=== PATIENT | male | born 1995 | race African-American/Black ===

== ENCOUNTER 2020-06-13 17:09 | Emergency (ER) | payer MEDICAID ==
[~2020-06-13] VITALS: Ht 165.1 cm; Wt 63.5 kg
[2020-06-13 17:55] VITALS: BP 115/58
--- NOTE | 2020-06-13 17:59 | NUR ---
GLENNY6. HANDED ON URINE CUP.
--- NOTE | 2020-06-13 18:54 | NUR ---
25YO M BIB SELF C/O BLOODY STOOLS SINCE 1AM. PT ALSO EXPERIENCING NAUSEA AND LOWER ABDOMINAL PAIN AFTER BOWEL MOVEMENT. DENIES DYSURIA, HEMATURIA. IN ED, VSS. ABDOMEN FLAT NONTENDER. PT RESTING IN BED COMFORTABLY. ERMD MADE AWARE. PMH: BRONCHITIS MEDS: ALBUTEROL NKA
--- NOTE | 2020-06-13 19:18 | NUR ---
REPORT RECEIVED FROM STEVE CHAMBERLAIN
--- NOTE | 2020-06-13 19:35 | NUR ---
SPOKE WITH PT, HE STATES HE HAD ANOTHER BOWEL MOVEMENT WHILE HERE AND IT WAS ALL BLOOD. HAVING LOWER ABD PAIN 10/10 AT THIS TIME. GAVE PT A BLANKET AND HELPED POSITION FOR COMFORT
[2020-06-13] MEDS ORDERED: KETOROLAC 30 MG/ML VIAL IVP ONE (19:50)
[2020-06-13] MEDS ORDERED: DICYCLOMINE 10 MG CAP PO ONE (19:50)
[2020-06-13 20:11] LABS: BASOPHILS % (AUTO) 0.6 % (0.0-2.0); EOSINOPHILS % (AUTO) 0.2 % (0.0-4.0); HEMATOCRIT 43.5 % (36-52); HEMOGLOBIN 14.9 g/dL (12.0-18.0); LYMPHOCYTES # (AUTO) 1.1 K/uL (2.0-11.5); LYMPHOCYTES % (AUTO) 23.2 % (20.5-51.1); MEAN CORPUSCULAR HEMOGLOBIN 29 pg (27-31); MEAN CORPUSCULAR HGB CONC 34 g/dL (33-37); MEAN CORPUSCULAR VOLUME 83.9 fL (80-94); MONOCYTES # (AUTO) 0.6 K/uL (0.8-1.0); MONOCYTES % (AUTO) 11.3 % (1.7-9.3); NEUTROPHILS # (AUTO) 3.2 K/uL (1.8-7.7); NEUTROPHILS % (AUTO) 64.7 % (42.2-75.2); PLATELET COUNT (AUTO) 156 K/uL (140-450); RED BLOOD CELL COUNT(AUTO) 5.18 MIL/uL (4.20-6.10); RED CELL DISTRIBUTION WIDTH 12.9 % (11.6-13.7); WHITE BLOOD COUNT (AUTO) 4.9 K/uL (4.8-10.8)
--- NOTE | 2020-06-13 20:21 | NUR ---
UNABLE TO LOCATE UA GIVEN EARLIER, PT PROVIDED WITH ANOTHER UA CUP AND TOLD WE BRIAN MORE URINE.
[2020-06-13 20:36] LABS: CARBON DIOXIDE 28.5 mmol/L (21-32); CREATININE 1.2 mg/dL (0.6-1.3); POTASSIUM 3.5 mmol/L (3.5-5.1); TOTAL BILIRUBIN 0.4 mg/dL (0.0-1.0)
[2020-06-13] MEDS ORDERED: ALUMINUM HYD/MAG/SIMETHICONE 30 ML UDC PO ONE (21:05)
--- NOTE | 2020-06-13 21:05 | NUR ---
CONSRNT SIGNED FOR CT WITH IV CONTRAST
[2020-06-13] MEDS ORDERED: ALUMINUM HYD/MAG/SIMETHICONE 30 ML UDC ONE (21:18)
--- NOTE | 2020-06-13 21:27 | NUR ---
PT STATES PAIN HAS COME BACK, MD NOTIFIED NEW ORDER RECEIVED AND CARRIED OUT
--- NOTE | 2020-06-13 21:53 | NUR ---
PT JUST RETURNED FROM CT
--- NOTE | 2020-06-13 22:36 | NUR ---
PT SLEEPING, RESPIRATIONS EVEN REGULAR AND UNLABORED.
--- NOTE | 2020-06-13 23:24 | NUR ---
ASSISTED MD GAUTAM AT BEDSIDE FOR RECTAL EXAM OF PATIENT. PT ASLO ASKED TO PROVIDE A STOOL SPECIMEN AND UA
[2020-06-14 00:11] VITALS: BP 121/75
--- NOTE | 2020-06-14 00:12 | NUR ---
Patient discharged with v/s stable. Written and verbal after care instructions given and explained. Patient alert, oriented and verbalized understanding of instructions. Ambulatory with steady gait. All questions addressed prior to discharge. ID band removed. Patient advised to follow up with PMD. Rx of NORCO AND BENTYL given. Patient educated on indication of medication including possible reaction and side effects. Opportunity to ask questions provided and answered.
== END 2020-06-14 00:11 | disposition home or self-care (01) ==
LOC: MED 17:09
DX: R10.30 Lower abdominal pain, unspecified (principal); R19.7 Diarrhea, unspecified
CPT/HCPCS: 36415; 74177; 80053; 81002; 85025; 86140; 87070; 96374; 99285; J1885; Q9967

== ENCOUNTER 2020-07-13 10:29 | Emergency (ER) | payer MEDICAID ==
[~2020-07-13] VITALS: Ht 165.1 cm; Wt 63.0 kg
[2020-07-13 10:34] VITALS: BP 142/73
[2020-07-13] MEDS ORDERED: FLUORESCEIN OPTH STRIP 1 MG OP ONE (10:40)
--- NOTE | 2020-07-13 10:40 | NUR ---
Pt taken to ER bed 12.
--- NOTE | 2020-07-13 10:42 | NUR ---
25 y/o male c/o right eye pain 02/20 describes as throbbing with palpation worse. 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 Denies PMH NKA
[2020-07-13 11:41] VITALS: BP 142/73
--- NOTE | 2020-07-13 11:41 | NUR ---
Patient discharged with v/s stable. Written and verbal after care instructions given and explained. Patient alert, oriented and verbalized understanding of instructions. Ambulatory with steady gait. All questions addressed prior to discharge. ID band removed. Patient advised to follow up with PMD. Rx of prednisone 20mg PO for 5 days given. Patient educated on indication of medication including possible reaction and side effects. Opportunity to ask questions provided and answered.
== END 2020-07-13 11:41 | disposition home or self-care (01) ==
LOC: MED 10:29
DX: H00.022 Hordeolum internum right lower eyelid (principal)
CPT/HCPCS: 99283

== ENCOUNTER 2020-07-16 10:27 | Emergency (ER) | payer MEDICAID ==
[~2020-07-16] VITALS: Ht 165.1 cm; Wt 64.4 kg
[2020-07-16 10:31] VITALS: BP 128/91
--- NOTE | 2020-07-16 10:31 | NUR ---
PT LEFT IN TRIAGE FOR MSE.
--- NOTE | 2020-07-16 10:36 | NUR ---
25/M PRESENTS TO ED C/O LEFT EYE PAIN/SWELLING X2 DAYS. PT STATES HE WAS SEEN ON FRIDAY FOR STY TO RIGHT EYE. PT STATES THAT HAS SINCE RESOLVED AND PT NOW C/O PAIN TO LEFT EYE.
[2020-07-16 11:55] VITALS: BP 128/91
--- NOTE | 2020-07-16 11:55 | NUR ---
Patient discharged with v/s stable. Written and verbal after care instructions given and explained. Patient alert, oriented and verbalized understanding of instructions. Ambulatory with steady gait. All questions addressed prior to discharge. ID band removed. Patient advised to follow up with PMD. Rx of eye ointment 1/2 inch ribbon to affected eye 3-4times a day for 5days given. Patient educated on indication of medication including possible reaction and side effects. Opportunity to ask questions provided and answered.
== END 2020-07-16 11:55 | disposition home or self-care (01) ==
LOC: MED 10:27
DX: H00.015 Hordeolum externum left lower eyelid (principal)
CPT/HCPCS: 99283

== ENCOUNTER 2020-08-20 07:11 | Emergency (ER) | payer MEDICAID ==
[~2020-08-20] VITALS: Ht 165.1 cm; Wt 65.9 kg
[2020-08-20 07:24] VITALS: BP 119/79
[2020-08-20] MEDS ORDERED: IBUPROFEN 600 MG TAB PO ONE (07:35)
[2020-08-20 08:26] VITALS: BP 119/79
== END 2020-08-20 08:27 | disposition home or self-care (01) ==
LOC: MED 07:11
DX: S63.641A Sprain of metacarpophalangeal joint of right thumb, initial encounter (principal); F17.210 Nicotine dependence, cigarettes, uncomplicated; Z71.6 Tobacco abuse counseling; W18.39XA Other fall on same level, initial encounter; Y93.89 Activity, other specified; Y92.89 Other specified places as the place of occurrence of the external cause; Y99.8 Other external cause status
CPT/HCPCS: 73110; 73130; 99284